=== PATIENT | female | born 1970 | race Two or more races ===

== ENCOUNTER 2019-04-23 07:00 | Day surgery (SDC) | payer OTHER | END 2019-04-23 11:20 | disposition home or self-care (01) | LOC: AMB-ENDOS 07:00 | DX: D13.1 Benign neoplasm of stomach (principal) ==

== ENCOUNTER → 2020-12-29 | Day surgery (SDC) | payer OTHER | END | disposition home or self-care (01) | LOC: ADM 12-25 14:15 → AMB-ENDOS 09:12 | PROVIDERS: ATTEND Colon & Rectal Surgery | DX: K62.89 Other specified diseases of anus and rectum (principal); K64.1 Second degree hemorrhoids; Z20.822 Contact with and (suspected) exposure to COVID-19 ==